=== PATIENT | female | born 1955 | race Caucasian/White ===

== ENCOUNTER → 2020-01-31 10:36 | Outpatient (BNVA) | payer OTHER, MEDICARE, SELFPAY | PROVIDERS: PCP Hospitalist; Referring Provider Hospitalist; Visit Provider Anesthesiology | DX: Z76.89 Persons encountering health services in other specified circumstances (principal) ==

== ENCOUNTER → 2020-02-21 08:09 | Outpatient (BNVA) | payer MEDICARE, BC, SELFPAY | PROVIDERS: PCP Hospitalist; Visit Provider Anesthesiology | DX: G89.4 Chronic pain syndrome (principal); M47.816 Spondylosis without myelopathy or radiculopathy, lumbar region; M51.36 Other intervertebral disc degeneration, lumbar region; M06.9 Rheumatoid arthritis, unspecified; Z79.891 Long term (current) use of opiate analgesic | CPT/HCPCS: 99212 ==

== ENCOUNTER → 2020-03-20 08:14 | Outpatient (BNVA) | payer MEDICARE, OTHER, SELFPAY | PROVIDERS: PCP Hospitalist; Visit Provider Anesthesiology | DX: M06.9 Rheumatoid arthritis, unspecified (principal); G89.4 Chronic pain syndrome; F11.90 Opioid use, unspecified, uncomplicated; M47.816 Spondylosis without myelopathy or radiculopathy, lumbar region; M51.36 Other intervertebral disc degeneration, lumbar region | CPT/HCPCS: 99212 ==

== ENCOUNTER → 2020-04-24 08:32 | Outpatient (BNVA) | payer MEDICARE, BC, SELFPAY | PROVIDERS: PCP Hospitalist; Visit Provider Anesthesiology | DX: M06.9 Rheumatoid arthritis, unspecified (principal); G89.4 Chronic pain syndrome; F11.90 Opioid use, unspecified, uncomplicated; M47.816 Spondylosis without myelopathy or radiculopathy, lumbar region; M51.36 Other intervertebral disc degeneration, lumbar region; K59.03 Drug induced constipation; T40.2X5A Adverse effect of other opioids, initial encounter | CPT/HCPCS: 99212 ==

== ENCOUNTER → 2020-05-22 08:49 | Outpatient (BNVA) | payer MEDICARE, BC, SELFPAY | PROVIDERS: PCP Hospitalist; Visit Provider Anesthesiology | DX: M06.9 Rheumatoid arthritis, unspecified (principal); G89.4 Chronic pain syndrome; F11.90 Opioid use, unspecified, uncomplicated; M47.816 Spondylosis without myelopathy or radiculopathy, lumbar region; M51.36 Other intervertebral disc degeneration, lumbar region; K59.03 Drug induced constipation; T40.2X5D Adverse effect of other opioids, subsequent encounter | CPT/HCPCS: 99212 ==

== ENCOUNTER → 2020-06-19 09:09 | Outpatient (BNVA) | payer MEDICARE, BC, SELFPAY | PROVIDERS: PCP Hospitalist; Visit Provider Anesthesiology | DX: M06.9 Rheumatoid arthritis, unspecified (principal); G89.4 Chronic pain syndrome; F11.90 Opioid use, unspecified, uncomplicated; M47.816 Spondylosis without myelopathy or radiculopathy, lumbar region; M51.36 Other intervertebral disc degeneration, lumbar region; K59.03 Drug induced constipation; T40.2X5A Adverse effect of other opioids, initial encounter; Z87.891 Personal history of nicotine dependence | CPT/HCPCS: Q3014 ==

== ENCOUNTER → 2020-07-18 09:43 | Outpatient (BNVA) | payer MEDICARE, BC, SELFPAY | PROVIDERS: PCP Hospitalist; Visit Provider Anesthesiology | DX: M51.36 Other intervertebral disc degeneration, lumbar region (principal); M47.816 Spondylosis without myelopathy or radiculopathy, lumbar region; M06.9 Rheumatoid arthritis, unspecified; G89.4 Chronic pain syndrome; F11.90 Opioid use, unspecified, uncomplicated; K59.03 Drug induced constipation; T40.2X5A Adverse effect of other opioids, initial encounter; Z79.899 Other long term (current) drug therapy | CPT/HCPCS: 99212 ==

== ENCOUNTER → 2020-08-22 09:28 | Outpatient (BNVA) | payer OTHER, SELFPAY | PROVIDERS: PCP Hospitalist; Visit Provider Anesthesiology | DX: M06.9 Rheumatoid arthritis, unspecified (principal); G89.4 Chronic pain syndrome; F11.90 Opioid use, unspecified, uncomplicated; M47.816 Spondylosis without myelopathy or radiculopathy, lumbar region; M51.36 Other intervertebral disc degeneration, lumbar region ==

== ENCOUNTER → 2020-09-19 16:28 | Outpatient (BNVA) | payer MEDICARE, BC, SELFPAY | PROVIDERS: PCP Hospitalist; Visit Provider Anesthesiology | DX: M06.9 Rheumatoid arthritis, unspecified (principal); G89.4 Chronic pain syndrome; F11.90 Opioid use, unspecified, uncomplicated; M47.816 Spondylosis without myelopathy or radiculopathy, lumbar region; M51.36 Other intervertebral disc degeneration, lumbar region | CPT/HCPCS: 99212 ==

== ENCOUNTER → 2020-10-16 08:00 | Outpatient (BNVA) | payer MEDICARE, BC, SELFPAY | PROVIDERS: PCP Hospitalist; Visit Provider Anesthesiology | DX: G89.4 Chronic pain syndrome (principal); F11.90 Opioid use, unspecified, uncomplicated; M47.816 Spondylosis without myelopathy or radiculopathy, lumbar region; M51.36 Other intervertebral disc degeneration, lumbar region; T40.2X5A Adverse effect of other opioids, initial encounter; K59.03 Drug induced constipation | CPT/HCPCS: 99212 ==

== ENCOUNTER → 2020-11-13 13:00 | Outpatient (BNVA) | payer MEDICARE, OTHER, SELFPAY | PROVIDERS: PCP Hospitalist; Visit Provider Anesthesiology ==

== ENCOUNTER → 2020-12-11 08:25 | Outpatient (BNVA) | payer MEDICARE, BC, SELFPAY | PROVIDERS: PCP Hospitalist; Visit Provider Anesthesiology | DX: M06.9 Rheumatoid arthritis, unspecified (principal); M47.816 Spondylosis without myelopathy or radiculopathy, lumbar region; M51.36 Other intervertebral disc degeneration, lumbar region; G89.4 Chronic pain syndrome; F11.90 Opioid use, unspecified, uncomplicated; K59.03 Drug induced constipation; T40.2X5D Adverse effect of other opioids, subsequent encounter | CPT/HCPCS: 99212 ==

== ENCOUNTER → 2021-01-08 08:28 | Outpatient (BNVA) | payer MEDICARE, BC, SELFPAY | PROVIDERS: PCP Hospitalist; Visit Provider Anesthesiology | DX: Z51.81 Encounter for therapeutic drug level monitoring (principal); F11.90 Opioid use, unspecified, uncomplicated; T40.2X5A Adverse effect of other opioids, initial encounter; M47.816 Spondylosis without myelopathy or radiculopathy, lumbar region; M06.9 Rheumatoid arthritis, unspecified; M51.36 Other intervertebral disc degeneration, lumbar region; K59.03 Drug induced constipation | CPT/HCPCS: 99212 ==

== ENCOUNTER → 2021-02-12 08:23 | Outpatient (BNVA) | payer MEDICARE, BC, SELFPAY | PROVIDERS: PCP Hospitalist; Visit Provider Anesthesiology | DX: M47.816 Spondylosis without myelopathy or radiculopathy, lumbar region (principal); M51.36 Other intervertebral disc degeneration, lumbar region; M06.9 Rheumatoid arthritis, unspecified; G89.4 Chronic pain syndrome; F11.90 Opioid use, unspecified, uncomplicated; K59.03 Drug induced constipation; T40.2X5D Adverse effect of other opioids, subsequent encounter | CPT/HCPCS: 99212 ==

== ENCOUNTER → 2021-03-10 09:29 | Outpatient (BNVA) | payer MEDICARE, BC, SELFPAY | PROVIDERS: PCP Hospitalist; Visit Provider Anesthesiology | DX: Z51.81 Encounter for therapeutic drug level monitoring (principal); M47.816 Spondylosis without myelopathy or radiculopathy, lumbar region; M51.36 Other intervertebral disc degeneration, lumbar region; M06.9 Rheumatoid arthritis, unspecified; G89.4 Chronic pain syndrome; F11.90 Opioid use, unspecified, uncomplicated; K59.03 Drug induced constipation; T40.2X5D Adverse effect of other opioids, subsequent encounter | CPT/HCPCS: 99212 ==

== ENCOUNTER → 2021-04-07 10:15 | Outpatient (BNVA) | payer MEDICARE, BC, SELFPAY | PROVIDERS: PCP Hospitalist; Visit Provider Anesthesiology | DX: Z51.81 Encounter for therapeutic drug level monitoring (principal); F11.20 Opioid dependence, uncomplicated; M06.9 Rheumatoid arthritis, unspecified; G89.4 Chronic pain syndrome; M47.816 Spondylosis without myelopathy or radiculopathy, lumbar region; M51.36 Other intervertebral disc degeneration, lumbar region | CPT/HCPCS: 99212 ==

== ENCOUNTER → 2021-05-07 08:29 | Outpatient (BNVA) | payer MEDICARE, BC, SELFPAY | PROVIDERS: PCP Hospitalist; Visit Provider Anesthesiology | DX: Z51.81 Encounter for therapeutic drug level monitoring (principal); F11.20 Opioid dependence, uncomplicated; M06.9 Rheumatoid arthritis, unspecified; M47.816 Spondylosis without myelopathy or radiculopathy, lumbar region; M51.36 Other intervertebral disc degeneration, lumbar region; G89.4 Chronic pain syndrome | CPT/HCPCS: 99212 ==

== ENCOUNTER → 2021-06-02 10:06 | Outpatient (BNVA) | payer MEDICARE, BC, SELFPAY | PROVIDERS: PCP Hospitalist; Visit Provider Anesthesiology | DX: Z51.81 Encounter for therapeutic drug level monitoring (principal); F11.20 Opioid dependence, uncomplicated | CPT/HCPCS: 99211 ==

== ENCOUNTER → 2021-06-30 09:42 | Outpatient (BNVA) | payer MEDICARE, BC, SELFPAY | PROVIDERS: PCP Hospitalist; Visit Provider Anesthesiology | DX: Z13.89 Encounter for screening for other disorder (principal) ==

== ENCOUNTER → 2021-07-28 10:03 | Outpatient (BNVA) | payer MEDICARE, BC, SELFPAY | PROVIDERS: PCP Hospitalist; Visit Provider Anesthesiology | DX: Z51.81 Encounter for therapeutic drug level monitoring (principal); F11.20 Opioid dependence, uncomplicated; M06.9 Rheumatoid arthritis, unspecified; M47.816 Spondylosis without myelopathy or radiculopathy, lumbar region; M51.36 Other intervertebral disc degeneration, lumbar region; G89.4 Chronic pain syndrome | CPT/HCPCS: 99212 ==

== ENCOUNTER → 2021-08-25 10:08 | Outpatient (BNVA) | payer MEDICARE, BC, SELFPAY | PROVIDERS: PCP Hospitalist; Visit Provider Anesthesiology | DX: Z51.81 Encounter for therapeutic drug level monitoring (principal); F11.20 Opioid dependence, uncomplicated | CPT/HCPCS: 99211 ==

== ENCOUNTER → 2021-09-22 10:28 | Outpatient (BNVA) | payer MEDICARE, BC, SELFPAY | PROVIDERS: PCP Hospitalist; Visit Provider Anesthesiology | DX: Z51.81 Encounter for therapeutic drug level monitoring (principal); F11.20 Opioid dependence, uncomplicated | CPT/HCPCS: 99211 ==

== ENCOUNTER → 2021-10-21 09:50 | Outpatient (BNVA) | payer MEDICARE, BC, SELFPAY | PROVIDERS: PCP Hospitalist; Visit Provider Anesthesiology | DX: Z79.891 Long term (current) use of opiate analgesic (principal) | CPT/HCPCS: 99211 ==

== ENCOUNTER → 2021-11-17 09:26 | Outpatient (BNVA) | payer MEDICARE, BC, SELFPAY | PROVIDERS: PCP Hospitalist; Visit Provider Anesthesiology | DX: G89.4 Chronic pain syndrome (principal); M06.9 Rheumatoid arthritis, unspecified; M47.816 Spondylosis without myelopathy or radiculopathy, lumbar region; M51.36 Other intervertebral disc degeneration, lumbar region; M48.00 Spinal stenosis, site unspecified; Z79.891 Long term (current) use of opiate analgesic | CPT/HCPCS: 99212 ==

== ENCOUNTER 2021-12-02 08:52 | Outpatient (REF) | payer MEDICARE, BC, SELFPAY ==
--- NOTE | ~2021-12-02 | MR_ITS ---
EXAMINATION: MR LUMBAR SPINE WITHOUT CONTRAST CLINICAL INFORMATION: 66-year-old with self-reported low back pain radiating to both legs with tingling in both legs. Spinal stenosis, site unspecified. COMPARISON: None TECHNIQUE: MRI of the lumbar spine was obtained using routine sequences without contrast. FINDINGS: Coronal Alignment: There is moderate thoracolumbar levoscoliosis, convex to the left at T12-L1. There is mid to lower thoracic dextroscoliosis on the journeyman machinist view. Plain x-ray series of the thoracic and lumbar spine recommended. Sagittal Alignment: 5 mm of grade 1 spondylolisthesis at L5-S1 with possible pars defect on the left which cannot be confirmed with a high degree of certainty and a very thin pars interarticularis noted on the right. 3 mm of grade 1 degenerative spondylolisthesis at L4-L5 noted. Trace degenerative spondylolisthesis asymmetric to the right at L3-L4. 2 mm of grade 1 degenerative spondylolisthesis at L1-L2 and mild retrolisthesis at T11-T12. Lumbosacral Junction: Normal. Suspect 5 [id number] lumbar-type vertebral bodies which can be confirmed with plain x-rays. Vertebral Bodies: There is gcnm-or-[id number] chronic loss of height of the posterior aspect of the L5 vertebral body along the inferior endplate. Otherwise vertebral body heights are well maintained throughout the lumbar spine. There is moderate chronic loss of height with anterior wedging of the T11 vertebral body asymmetric to the right. Disc Spaces and Endplates: Severe disc space height loss with Schmorl's nodes, disc desiccation and probable intradiscal vacuum disc phenomenon at L5-S1 with prominent anterolateral spondylosis at this level. Mild disc space height loss and disc desiccation at L4-L5 with anterior and paravertebral spondylosis. Disc desiccation seen throughout the remainder of the visualized thoracolumbar intervertebral discs with intradiscal T2 hyperintensity at T11-T12, likely degenerative partial ankylosis of the intervertebral disc space at T10-T11. Prominent spondylosis at T11-T12 and T10-T11. Spinal Canal: Significant spinal canal stenosis at L4-L5 and L5-S1 as detailed above. Bone Marrow: Type I degenerative marrow signal changes noted along the endplates at L5-S1. No suspicious marrow replacing process. Conus Medullaris: Terminates at L1-L2. Morphology and signal is normal. Intradural Nerve Roots: Marked crowding of the intradural nerve roots at L4-L5 and L5-S1 consistent with spinal stenosis. L5-S1: Unroofing of the posterior disc margin noted consistent with grade 1 spondylolisthesis, with a central extruded disc herniation with mild cephalad migration and posterolateral disc osteophyte complex bilaterally. Prominent epidural fat at this level with severe bilateral facet arthrosis and severe central spinal canal stenosis with marked crowding of the intradural nerve roots. There is severe bilateral lateral recess stenosis with impingement on the traversing S1 nerve roots bilaterally. There is severe bilateral neural foraminal stenosis with impingement on the exiting L5 nerve roots bilaterally. L4-L5: Unroofing of the posterior disc margin consistent with grade 1 spondylolisthesis. Superimposed disc bulging and broad-based central to left subarticular and foraminal extruded disc herniation with cephalad migration on the left with marked flattening the ventral dural sac. There is marked ligamentum flavum thickening with interspinous ligament degeneration and [id number] bilateral facet arthropathy with bilateral facet joint effusions and small synovial cysts arising from the posteroinferior margins of both facet joints. There is severe central spinal canal stenosis with marked crowding of the intradural nerve roots suggesting cauda equina compromise. There is severe bilateral lateral recess stenosis likely impinging on the traversing L5 nerve roots bilaterally. There is moderate to severe left-sided and [id number]-hd-exgjgowx right-sided neural foraminal stenosis with impingement on the exiting left L4 nerve root. 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 L3-L4: Diffuse disc bulging is noted slightly asymmetric to the left with deformity of the posterior elements on the left suggesting a previous laminectomy. Mild flattening of the dural sac is noted without significant central spinal canal stenosis. There is facet arthropathy right more the left and ligamentum flavum thickening on the right with mild narrowing of the right subarticular zone. Mild right-sided foraminal narrowing is noted without neural impingement. L2-L3: Broad-based central to right subarticular disc protrusion, with mild flattening of the dural sac asymmetric to the right without neural impingement. Minor facet arthrosis is noted bilaterally without significant canal or neuroforaminal stenosis. L1-L2: Mild anterolisthesis is noted with left and right paramedian disc protrusions without significant facet arthrosis, canal or neural foraminal stenosis. No axial imaging was obtained through the lower thoracic levels, but there is suspicion for broad-based disc herniation asymmetric to the right and right lateral disc osteophyte complex at T11-T12 with right-sided facet arthropathy and severe right-sided neural foraminal stenosis. There is effacement of the ventral dural sac which may be encroaching/impinging on the ventral aspect of the spinal cord at this level, with a prominent dorsal epidural fat pad and suspicion for moderate spinal canal stenosis. There is disc osteophyte complex at T10-T11 as well without cord impingement, with facet arthropathy on the left and moderate left-sided neural foraminal stenosis. Facet arthrosis is also noted with disc bulging at T9-T10 and T8-T9 with possible mild cord impingement at T8-T9. Paraspinal/Retroperitoneal: There is ezehybui-hw-afwwts psoas muscle volume loss left more than right and vdvt-qk-[id number] posterior paraspinal muscle volume loss. Otherwise, the paravertebral soft tissues are grossly unremarkable. There is a subcentimeter T2 hypointensity in the medial cortex of the upper pole of the left kidney which is nonspecific but could reflect a hemorrhagic cyst. MR/MR lumbar spine wo con IMPRESSION: 1. Thoracolumbar scoliosis, as described above, with grade 1 spondylolisthesis at L5-S1, L4-L5, L3-L4 and L1-L2, with mild retrolisthesis at T11-T12. 2. Severe discogenic degenerative changes at L5-S1 and a possible pars defect on the left at this level which cannot be confirmed with a high degree of certainty. Partial ankylosis at T10-T11 and severe disc degenerative changes at T11-T12, T9-T10 and T8-T9. Gimi-kt-aohmnncn discogenic degenerative change at L4-L5. 3. Multilevel disc bulging and disc herniations, with multilevel posterior element hypertrophic degenerative changes with severe spinal canal stenosis at L4-L5 and L5-S1 with severe crowding of the intradural nerve roots. Correlate for any evidence of cauda equina syndrome. There is impingement on the traversing S1 and L5 nerve roots bilaterally and there is severe bilateral neural foraminal stenosis at L5-S1 and [id number] left-sided neuroforaminal stenosis at L4-L5 with impingement on the L5 nerve roots bilaterally and left L4 nerve root. 4. Presumed postsurgical changes on the left at L3-L4 consistent with previous canal decompression with facet arthropathy on the right at this level and mild right-sided neural foraminal stenosis. 5. Mild central to right paramedian disc protrusion at L2-L3 and mild disc protrusions at L1-L2 as detailed above. 6. Severe lower thoracic degenerative changes which were not imaged in the axial plane with possible ventral cord impingement at T11-T12 with associated spinal canal stenosis at this level. Severe right-sided neural foraminal stenosis at T11-T12 with right T11 nerve root impingement. Severe left-sided neural foraminal stenosis at T9-T10 with probable impingement on the exiting left T9 nerve root.
== END 2021-12-02 08:53 | disposition home or self-care (01) ==
LOC: HO.MRI 08:52
PROVIDERS: Visit Provider Anesthesiology
DX: M48.00 Spinal stenosis, site unspecified (principal); M51.36 Other intervertebral disc degeneration, lumbar region
CPT/HCPCS: 72148

== ENCOUNTER → 2021-12-15 09:25 | Outpatient (BNVA) | payer MEDICARE, BC, SELFPAY | PROVIDERS: PCP Hospitalist; Visit Provider Anesthesiology | DX: G89.4 Chronic pain syndrome (principal); F11.90 Opioid use, unspecified, uncomplicated; M51.36 Other intervertebral disc degeneration, lumbar region; M06.9 Rheumatoid arthritis, unspecified; M47.816 Spondylosis without myelopathy or radiculopathy, lumbar region; M48.00 Spinal stenosis, site unspecified | CPT/HCPCS: 99212 ==

== ENCOUNTER → 2022-01-12 10:14 | Outpatient (BNVA) | payer MEDICARE, BC, SELFPAY | PROVIDERS: Visit Provider Anesthesiology | DX: Z51.81 Encounter for therapeutic drug level monitoring (principal); F11.20 Opioid dependence, uncomplicated; M06.9 Rheumatoid arthritis, unspecified; M47.816 Spondylosis without myelopathy or radiculopathy, lumbar region; M51.36 Other intervertebral disc degeneration, lumbar region; M48.00 Spinal stenosis, site unspecified; G89.4 Chronic pain syndrome | CPT/HCPCS: 99212 ==

== ENCOUNTER → 2022-02-05 10:51 | Outpatient (BNVA) | payer MEDICARE, BC, SELFPAY | PROVIDERS: Visit Provider Anesthesiology | DX: Z51.81 Encounter for therapeutic drug level monitoring (principal); F11.20 Opioid dependence, uncomplicated; M06.9 Rheumatoid arthritis, unspecified; M47.816 Spondylosis without myelopathy or radiculopathy, lumbar region; M51.36 Other intervertebral disc degeneration, lumbar region; M48.00 Spinal stenosis, site unspecified; G89.4 Chronic pain syndrome | CPT/HCPCS: 99212 ==

== ENCOUNTER → 2022-03-04 13:26 | Outpatient (BNVA) | payer MEDICARE, BC, SELFPAY | PROVIDERS: Visit Provider Anesthesiology | DX: Z51.81 Encounter for therapeutic drug level monitoring (principal); F11.20 Opioid dependence, uncomplicated; M06.9 Rheumatoid arthritis, unspecified; M47.816 Spondylosis without myelopathy or radiculopathy, lumbar region; M51.36 Other intervertebral disc degeneration, lumbar region; M48.00 Spinal stenosis, site unspecified; G89.4 Chronic pain syndrome | CPT/HCPCS: 99212 ==

== ENCOUNTER → 2022-04-01 09:56 | Outpatient (BNVA) | payer MEDICARE, BC, SELFPAY | PROVIDERS: Visit Provider Anesthesiology | DX: Z51.81 Encounter for therapeutic drug level monitoring (principal); F11.20 Opioid dependence, uncomplicated | CPT/HCPCS: 99211 ==

== ENCOUNTER → 2022-05-06 08:41 | Outpatient (BNVA) | payer MEDICARE, BC, SELFPAY | PROVIDERS: PCP Nurse Practitioner Family; Visit Provider Anesthesiology | DX: G89.4 Chronic pain syndrome (principal); M47.816 Spondylosis without myelopathy or radiculopathy, lumbar region; M51.36 Other intervertebral disc degeneration, lumbar region; M48.00 Spinal stenosis, site unspecified; M06.9 Rheumatoid arthritis, unspecified; Z79.891 Long term (current) use of opiate analgesic | CPT/HCPCS: 99212 ==